=== PATIENT | female | born 1970 | race Caucasian/White ===

== ENCOUNTER 2022-06-15 05:49 | Observation (INO) | payer BC ==
--- OUTSIDE RECORDS SUMMARY | 2022-06-15 05:53 | XMS REPORT | Continuity of Care Document ---
:1970 Author Organization [facility] t Address [address] [place] [address] Care Team Providers Name Role Phone Asked, No Pcp Primary Care Physician Unavailable KNOW, DOES_NOT Attending Clinician Unavailable Miracle Estevez Attending Clinician Unavailable Physician, No Primary or Family Admitting Clinician Unavaila ble Payers Payer Name Policy Type Policy Number Effective Date Expiration Date S ource Problems This patient has no known problems. Allergies, Adverse Reactions, Alerts Allergy Allergy Status Severity Reaction(s) Onset Inactive Treating Comm ents Source Name Type Date Date Clinician No Known DA Active U 2020-0 [facility] Clear s 00:00: [place] [address] [facility] No Known DA Active U 2020-0 [facility] Allergie 5-11 Clear s 00:00: [place] [address] [facility] No Known DA Active U 2020-0 [facility] 3[facility]10 [facility] No Known DA Active U 2020-0 [facility] Allergie 3-10 [facility] Morphine Propensi Active Other (See 20180 Makes me Methodi ty to Comments) 6- crazy st adverse 00:00: Hospita reaction 00 l s to drug Family History Family Member Diagnosis Comments Start Date Stop Date Source Natural brother Cancer [facility] Natural father Heart disease [facility] Natural mother Stroke [facility] Social History Social Habit Start Date Stop Date Quantity Comments Source History of Smokes tobacco [facility] tobacco use daily [facility] Alcohol intake 2018-01-10 2018-01-10 Current [facility] 00:00:00 00:00:00 non-drinker of Hospital alcohol (finding) Tobacco use and 2018-01-04 2018-01-04 User of smokeless [facility] exposure 00:00:00 00:00:00 tobacco Hospital Sex Assigned At [birth year] [facility] 00:[facility]:00 Hospital Smoking Status Start Date Stop Date Source Smokes tobacco daily 2018-01-04 00:00:00 [facility] Medications Ordered Filled Start Stop Current Ordering Indication Dosage Frequency Signature Comments Components Source Medication Medication Date Date Medication? Clinician (SIG) Name Name lisinopril 0 Yes 20mg QD Take 20 mg M ethodi (PRINIVIL,Z 6-[address] ESTRIL) 20 13:54: daily. Hospi ta mg tablet 53 l hydroCHLORO 0 Yes 12.5mg QD Take 12.5 Methodi thiazide 6-[address] (HYDRODIURI 13:54: mouth Hospi ta L) 12.5 MG 53 daily. l tablet levothyroxi 0 Yes 100ug QD Take 100 M ethodi ne 6-[address] (SYNTHROID, 13:54: mouth Hospi ta LEVOXYL) 53 daily. l 100 mcg tablet carvedilol 0 Yes 12.5mg Q.5D Take 12.5 Methodi (COREG) 6-[address] 12.5 MG 13:54: mouth 2 Hospita tablet 53 (two) l times a day with meals. gemfibrozil 2017-0 Yes 600mg QD Take 600 M ethodi (LOPID) 600 6-[address] MG tablet 13:54: mouth Hospita 53 daily. l clopidogrel 2018-0 Yes 75mg QD Take 75 mg Methodi (PLAVIX) 75 6-[address] mg tablet 13:54: daily. Hospit a 53 l ranitidine 2017-0 Yes 75mg Q.5D Take 75 mg M ethodi (ZANTAC) 15 6-[address] mg/mL syrup 13:54: (two) Hospi ta 53 times a l day. Procedures Procedure Date / Time Performed Performing Clinician Malissa horton [id number] 2019-12-04 00:00:00 [facility] [id number] 2019-12-04 00:00:00 [facility] [id number] 2019-12-04 00:00:00 [facility] Plan of Care Planned Activity Planned Date Details Comments Source Future Scheduled 2022-05-28 HEPATITIS B VACCINES Met [facility] Test 21:40:46 (1 of 3 - 3-dose series) [code = HEPATITIS B VACCINES (1 of 3 - 3-dose series)] Future Scheduled 2022-05-28 COVID-19 VACCINE (#1) [facility] Test 21:40:46 [code = COVID-19 VACCINE (#1)] Future Scheduled 2022-05-28 Screening for [facility] Test 21:40:46 malignant neoplasm of cervix (procedure) [code = 420728987] Future Scheduled 2022-05-28 BREAST CANCER [facility] Test 21:40:46 SCREENING [code = BREAST CANCER SCREENING] Future Scheduled 2022-05-28 COLONOSCOPY SCREENING [facility] Test 21:40:46 [code = COLONOSCOPY SCREENING] Future Scheduled 2022-05-28 SHINGLES VACCINES (1 Met [facility] Test 21:40:46 of 2) [code = SHINGLES VACCINES (1 of 2)] Future Scheduled 2022-05-28 INFLUENZA VACCINE [facility] Test 21:40:46 [code = INFLUENZA VACCINE] Encounters Start End Encounter Admission Attending Care Care Encounter Source Date/Time Date/Time Type Type Clinicians Facility Department ID 2019-12-02 Inpatient HCAMN MAISHA [id number] [facility] 10:34:00 44 [facility] 2019-10-02 Inpatient HCAMN MAISHA [id number] [facility] 15:53:00 32 [facility] 2020-02-25 2020-02-25 Outpatient TIFFANY, KENYON MANCILLAM [id number] [facility] 13:41:00 13:41:00 DOES_NOT 25 [facility] 2019-12-03 2019-12-03 Outpatient ANISA Estevez LABO [id number] [facility] 23:57:00 23:57:00 Miracle 27 [facility] Results Test Description Test Time Test Comments Results Result Comments Source BASIC METABOLIC PANEL 2019-12-05 07:08:00 Test Item Value Reference Range Interpretation Comme nts SODIUM (test code = NA) 136 mmol/l 134.0-147.0 N POTASSIUM (test code = K) 4.1 mmol/L 3.6-5.2 N CHLORIDE (test code = CL) 104 mmol/l 98.0-107.0 N CARBON DIOXIDE (test code = CO2) 27.4 mmol/l 21.0-33.0 N ANION GAP (test code = GAP) 8.7 0-20 N GLUCOSE (test code = GLU) 92 mg/dl 70.0-110.0 N BLOOD UREA NITROGEN (test code = BUN) 17 mg/dl 7.0-18.0 N CREATININE (test code = CREAT) 0.89 mg/dL 0.60-1.30 N GFR NON BLACK (test code = GFRNONBLACK) 71 mL/min 95-105 L GFR BLACK (test code = GFRBLACK) 86 mL/min 115-127 L CALCIUM (test code = CA) 8.2 mg/dl 8.0-10.5 N CBC W/AUTO [id number] 06:55:00 Test Item Value Reference Range Interpretation Comments WHITE BLOOD CELL (test code = 9.4 K/mm3 4.5-11.0 N WBC) RED BLOOD CELL (test code = 4.37 M/mm3 3.80-5.20 N RBC) HEMOGLOBIN (test code = HGB) 13.6 gm/dL 12.0-16.0 N HEMATOCRIT (test code = HCT) 41.3 % 36.0-48.0 N MEAN CELL VOLUME (test code = 94.5 UM3 82.0-99.0 N MCV) MEAN CELL HGB (test code = MCH) 31.1 UUG 25.5-32.5 N MEAN CELL HGB CONCETRATION 32.9 gm/dL 29.0-35.5 N (test code = MCHC) RED CELL DISTRIBUTION WIDTH 13.2 % 11.5-15.0 N (test code = RDW) RED CELL DISTRIBUTION WIDTH SD 45.1 fL 34.8-50.2 N (test code = RDW-SD) PLATELET COUNT (test code = 188 K/mm3 150-400 N PLT) MEAN PLATELET VOLUME (test code 11.7 fl 7.4-10.4 H = MPV) NEUTROPHIL % (test code = NT%) 59.6 % 49.0-76.0 N IMMATURE GRANULOCYTE % (test 0.7 % 0.0-0.4 H code = IG%) LYMPHOCYTE % (test code = LY%) 27.9 % 23.0-38.0 N MONOCYTE % (test code = MO%) 9.9 % 1.0-10.0 N EOSINOPHIL % (test code = EO%) 1.3 % 1.0-5.0 N BASOPHIL % (test code = BA%) 0.6 % 0.0-1.0 N NEUTROPHIL # (test code = NT#) 5.6 K/mm3 2.4-6.3 N IMMATURE GRANULOCYTE # (test 0.07 x10 3/uL 0.00-0.07 N code = IG#) LYMPHOCYTE # (test code = LY#) 2.6 K/mm3 1.2-4.0 N MONOCYTE # (test code = MO#) 0.9 K/mm3 0.0-0.6 H EOSINOPHIL # (test code = EO#) 0.1 K/MM3 0.0-0.7 N BASOPHIL # (test code = BA#) 0.1 K/mm3 0.0-0.2 N [id number]00 Test Item Value Reference Range Interpretation Comments Coronavirus 2019 [facility] (test Negative Negative code = COVNONPUIBED) Coronavirus 2019 [id number] 09:26:00 Test Item Value Reference Range Interpretation Comments Coronavirus 2019 [facility] (test Negative Negative code = COVNONPUIBED) BASIC METABOLIC [id number] 04:46:00 Test Item Value Reference Range Interpretation Comments SODIUM (test code = NA) 142 mmol/l 134.0-147.0 N POTASSIUM (test code = K) 3.9 mmol/L 3.6-5.2 N CHLORIDE (test code = CL) 108 mmol/l 98.0-107.0 H CARBON DIOXIDE (test code = CO2) 26.1 mmol/l 21.0-33.0 N ANION GAP (test code = GAP) 11.8 0-20 N GLUCOSE (test code = GLU) 88 mg/dl 70.0-110.0 N BLOOD UREA NITROGEN (test code = 22 mg/dl 7.0-18.0 H BUN) CREATININE (test code = CREAT) 1.04 mg/dL 0.60-1.30 N GFR NON BLACK (test code = 60 mL/min 95-105 L GFRNONBLACK) GFR BLACK (test code = GFRBLACK) 72 mL/min 115-127 L CALCIUM (test code = CA) 8.0 mg/dl 8.0-10.5 N CBC W/AUTO [id number] 04:30:00 Test Item Value Reference Range Interpretation Comments WHITE BLOOD CELL (test code = 8.3 K/mm3 4.5-11.0 N WBC) RED BLOOD CELL (test code = 4.44 M/mm3 3.80-5.20 N RBC) HEMOGLOBIN (test code = HGB) 13.9 gm/dL 12.0-16.0 N HEMATOCRIT (test code = HCT) 41.9 % 36.0-48.0 N MEAN CELL VOLUME (test code = 94.4 UM3 82.0-99.0 N MCV) MEAN CELL HGB (test code = MCH) 31.3 UUG 25.5-32.5 N MEAN CELL HGB CONCETRATION 33.2 gm/dL 29.0-35.5 N (test code = MCHC) RED CELL DISTRIBUTION WIDTH 12.9 % 11.5-15.0 N (test code = RDW) RED CELL DISTRIBUTION WIDTH SD 44.5 fL 34.8-50.2 N (test code = RDW-SD) PLATELET COUNT (test code = 199 K/mm3 150-400 N PLT) MEAN PLATELET VOLUME (test code 12.0 fl 7.4-10.4 H = MPV) NEUTROPHIL % (test code = NT%) 50.3 % 49.0-76.0 N IMMATURE GRANULOCYTE % (test 0.5 % 0.0-0.4 H code = IG%) LYMPHOCYTE % (test code = LY%) 36.2 % 23.0-38.0 N MONOCYTE % (test code = MO%) 10.2 % 1.0-10.0 H EOSINOPHIL % (test code = EO%) 1.8 % 1.0-5.0 N BASOPHIL % (test code = BA%) 1.0 % 0.0-1.0 N NEUTROPHIL # (test code = NT#) 4.2 K/mm3 2.4-6.3 N IMMATURE GRANULOCYTE # (test 0.04 x10 3/uL 0.00-0.07 N code = IG#) LYMPHOCYTE # (test code = LY#) 3.0 K/mm3 1.2-4.0 N MONOCYTE # (test code = MO#) 0.8 K/mm3 0.0-0.6 H EOSINOPHIL # (test code = EO#) 0.2 K/MM3 0.0-0.7 N BASOPHIL # (test code = BA#) 0.1 K/mm3 0.0-0.2 N [id number] 12:19:00 Test Item Value Reference Range Interpretation Comments GLUBED (test code = GLUBED) 90 mg/dL 70-110 N [id number] 18:26:00 Test Item Value Reference Range Interpretation Comments TROPONIN-I (test 0.66 NG/ML 0.00-0.06 HH REFERENCE R ERMIAS TROPONIN code = TROPI) I HEALTHY WILMAN VIDUALS: <0.06 ng/mL R/O ISCHEMIA: 0.07 - 0.60 ng/mL CUT-OFF R ERMIAS FOR AMI: 0.60 - 1.5 ng/mL [id number] 18:05:00 Test Item Value Reference Range Interpretation Comments GLUBED (test code = GLUBED) 117 mg/dL 70-110 H [id number] 16:17:00 Test Item Value Reference Range Interpretation Comments TROPONIN-I (test 0.67 NG/ML 0.00-0.06 HH REFERENCE R ERMIAS TROPONIN code = TROPI) I HEALTHY WILMAN VIDUALS: <0.06 ng/mL R/O ISCHEMIA: 0.07 - 0.60 ng/mL CUT-OFF R ERMIAS FOR AMI: 0.60 - 1.5 ng/mL - XR CHEST 1 [id number] 12:45:00 FAX: Urszula Whitman MD [phone] [place]: St: REG Name: OLGA [facility] : 1970 Age/S: 49/F [employer] Unit #: [id number] Loc: [address] Phys: [place] [id number] Acct: [id number] Dis Date: Status: REG ER PHONE #: [phone] Exam Date: 12/02/2019 1239 FAX#: [phone] Reason: SOB EXAMS: CPT CODE: [id number] XR CHEST 1 V 43894 STUDY: Chest radiograph HISTORY: Shortness of breath. COMPARISON: None. TECHNIQUE: Frontal view of the chest. SITE: R16 FINDINGS: There is a left-sided chest wall triple lead AICD. The cardiac silhouette is mildly enlarged. Theretrocardiac region is limited in visualization. There otherwise, there is no definitive focal consolidation, pleural effusion, or pneumothorax. No acute osseous abnormalities are identified. IMPRESSION: No definitive radiographic evidence for acute pulmonary abnormality, limited in assessment at the retrocardiac region. Cardiomegaly. at 7947 Reported and signed by: Lenny Toth M.D. CC: Urszula Whitman MD Technologist: Amanda Daugherty RT(R) Trnscrd Date/Time/By: 12/02/2019 (0923) : By: [email or web address] PAGE 1 Signed Report FAX: Urszula Whitman MD [phone] [place]: St: REG Name: OLGA CRAWFORD [facility] : 1970 Age/S: 49/F [address] [facility] Unit #: [id number] Loc: E.ERS2 [place], [place]: [place] [id number] Acct: [id number] Dis Date: Status: REG ER PHONE #: [phone] Exam Date: 12/02/2019 1239 FAX #: [phone] Reason: SOB EXAMS: CPT CODE: [id number] XR CHEST 1 V 87433 (Continued) Orig Print D/T: S: 12/02/2019 (1248) PAGE 2 Signed ReportURINALYSIS [id number] 12:32:00 Test Item Value Reference Range Interpretation Comments UA COLOR (test code = YELLOW COLU) UA APPEARANCE (test code CLEAR = APPU) UA GLUCOSE DIPSTICK (test NORMAL mg/dl NORMAL code = DGLUU) UA BILIRUBIN DIPSTICK NEGATIVE mg/dL NEGATIVE (test code = BILU) UA KETONE DIPSTICK (test NEGATIVE mg/dl NEGATIVE code = KETU) UA SPECIFIC GRAVITY (test 1.025 1.000-1.030 code = SGU) UA BLOOD DIPSTICK (test 10 Cliff/micL Cliff/micL NEGATIVE A code = ANGELA) UA PH DIPSTICK (test code 5.0 5.0-9.0 = IZZY) UA PROTEIN DIPSTICK (test NEGATIVE mg/dl NEGATIVE code = PROU) UA UROBILINIOGEN DIPSTICK NORMAL mg/dl NORMAL (test code = URO) UA NITRITE DIPSTICK (test NEGATIVE NEGATIVE code = CAITLYN) UA LEUKOCYTE ESTERASE NEGATIVE Louise/micL NEGATIVE DIPSTICK (test code = LEUU) UA WBC (test code = WBCU) 0-3 WBC/HPF NONE UA RBC (test code = RBCU) 0-2 RBC/HPF 0-3 UA EPITHELIAL CELLS (test 2-5 EPI/HPF 0-3 A code = EPIU) UA BACTERIA (test code = TRACE NONE BACU) Specimen comments: Clean CatchHCG SERUM [id number] 12:26:00 Test Item Value Reference Range Interpretation Comments HCG SERUM QUAL (test code = HCGQL) NEGATIVE NEGATIVE DRUGS OF ABUSE SCREEN [id number] 12:12:00 Test Item Value Reference Range Interpretation Comments URN COCAINE (test code NEGATIVE NEGATIVE Cocai ne cut-off = COCAURN) concentration: 300 ng/mL URN CANNABINOIDS (test NEGATIVE NEGATIVE Canna binoids cut-off code = CANNABURN) concentrat ion: 50 ng/mL URN AMPHETAMINE (test NEGATIVE NEGATIVE Amphet amine cut-off code = AMPHETURN) concentrat ion: 1000 ng/mL URN BARBITURATE (test NEGATIVE NEGATIVE Barbit urate cut-off code = BARBITURN) concentrat ion: 200 ng/mL URN BENZODIAZEPINE NEGATIVE NEGATIVE Benzodiaz epine cut-off (test code = BENZOURN) naseem ntration: 200 ng/mL URN OPIATES (test code NEGATIVE NEGATIVE Opiat es cut-off = OPIATURN) concentration: 200 ng/mL URN PHENCYCLIDINE (PCP) NEGATIVE NEGATIVE Phen cyclidine(PCP) (test code = PHENCURN) cut-o ff concentration: 25 ng/ml URN METHADONE (test NEGATIVE NEGATIVE Methadon e cut-off code = METHAURN) concentrati on: 300 ng/mL URINALYSIS [id number] 12:12:00 Test Item Value Reference Range Interpretation Comments UA COLOR (test code = YELLOW COLU) UA APPEARANCE (test code CLEAR = APPU) UA GLUCOSE DIPSTICK (test NORMAL mg/dl NORMAL code = DGLUU) UA BILIRUBIN DIPSTICK NEGATIVE mg/dL NEGATIVE (test code = BILU) UA KETONE DIPSTICK (test NEGATIVE mg/dl NEGATIVE code = KETU) UA SPECIFIC GRAVITY (test 1.025 1.000-1.030 code = SGU) UA BLOOD DIPSTICK (test 10 Cliff/micL Cliff/micL NEGATIVE A code = ANGELA) UA PH DIPSTICK (test code 5.0 5.0-9.0 = IZZY) UA PROTEIN DIPSTICK (test NEGATIVE mg/dl NEGATIVE code = PROU) UA UROBILINIOGEN DIPSTICK NORMAL mg/dl NORMAL (test code = URO) UA NITRITE DIPSTICK (test NEGATIVE NEGATIVE code = CAITLYN) UA LEUKOCYTE ESTERASE NEGATIVE Louise/micL NEGATIVE DIPSTICK (test code = LEUU) UA WBC (test code = WBCU) WBC/HPF NONE UA RBC (test code = RBCU) RBC/HPF 0-3 UA EPITHELIAL CELLS (test EPI/HPF 0-3 code = EPIU) UA BACTERIA (test code = NONE BACU) Specimen comments: Clean CatchBASIC METABOLIC [id number] 11:51:00 Test Item Value Reference Range Interpretation Comments SODIUM (test code = NA) 139 mmol/l 134.0-147.0 N POTASSIUM (test code = K) 3.8 mmol/L 3.6-5.2 N CHLORIDE (test code = CL) 105 mmol/l 98.0-107.0 N CARBON DIOXIDE (test code = CO2) 25.2 mmol/l 21.0-33.0 N ANION GAP (test code = GAP) 12.6 0-20 N GLUCOSE (test code = GLU) 110 mg/dl 70.0-110.0 N BLOOD UREA NITROGEN (test code = 22 mg/dl 7.0-18.0 H BUN) CREATININE (test code = CREAT) 1.15 mg/dL 0.60-1.30 N GFR NON BLACK (test code = 53 mL/min 95-105 L GFRNONBLACK) GFR BLACK (test code = GFRBLACK) 64 mL/min 115-127 L CALCIUM (test code = CA) 8.5 mg/dl 8.0-10.5 N Specimen comments: .HEPATIC FUNCTION PANEL [id number] 11:51:00 Test Item Value Reference Range Interpretation Comments TOTAL PROTEIN (test code = PROT) 7.2 GM/DL 6.0-8.1 N ALBUMIN (test code = ALB) 3.5 gm/dL 3.2-4.7 N BILIRUBIN TOTAL (test code = BILT) 0.4 mg/dl 0.0-1.0 N BILIRUBIN DIRECT (test code = 0.1 mg/dl 0.0-0.3 N BILD) SGOT/AST (test code = AST) 24 Units/L 15.0-37.0 N SGPT/ALT (test code = ALT) 33 Units/L 12.0-78.0 N ALKALINE PHOSPHATASE TOTAL (test 76 Units/L 50.0-136.0 N code = ALKP) Specimen comments: .[id number] 11:51:00 Test Item Value Reference Range Interpretation Comments LIPASE (test code = LIP) 123 Units/L 65.0-230.0 N Specimen comments: .B-TYPE NATRIURETIC [id number] 11:51:00 Test Item Value Reference Range Interpretation Comments B-TYPE NATRIURETIC PEPTIDE (test 45.9 PG/ML 5-100 N code = BNP) Specimen comments: .[id number] 11:51:00 Test Item Value Reference Range Interpretation Comments CKMB (test code = 5.5 NG/ML 0.5-5.0 H DISREGARD CKMB INDEX CKMBT) CALCULATION WHE NEVER THE CKMBT ISREPORTE D <0.5 Specimen comments: .[id number] 11:51:00 Test Item Value Reference Range Interpretation Comments TROPONIN-I (test 0.24 NG/ML 0.00-0.06 H REFERENCE R ERMIAS TROPONIN code = TROPI) I HEALTHY WILMAN VIDUALS: <0.06 ng/mL R/O ISCHEMIA: 0.07 - 0.60 ng/mL CUT-OFF R ERMIAS FOR AMI: 0.60 - 1.5 ng/mL Specimen comments: .BASIC METABOLIC [id number] 11:48:00 Test Item Value Reference Range Interpretation Comments SODIUM (test code = NA) 139 mmol/l 134.0-147.0 N POTASSIUM (test code = K) 3.8 mmol/L 3.6-5.2 N CHLORIDE (test code = CL) 105 mmol/l 98.0-107.0 N CARBON DIOXIDE (test code = CO2) 25.2 mmol/l 21.0-33.0 N ANION GAP (test code = GAP) 12.6 0-20 N GLUCOSE (test code = GLU) 110 mg/dl 70.0-110.0 N BLOOD UREA NITROGEN (test code = 22 mg/dl 7.0-18.0 H BUN) CREATININE (test code = CREAT) 1.15 mg/dL 0.60-1.30 N GFR NON BLACK (test code = 53 mL/min 95-105 L GFRNONBLACK) GFR BLACK (test code = GFRBLACK) 64 mL/min 115-127 L CALCIUM (test code = CA) 8.5 mg/dl 8.0-10.5 N Specimen comments: .HEPATIC FUNCTION PANEL [id number] 11:48:00 Test Item Value Reference Range Interpretation Comments TOTAL PROTEIN (test code = PROT) 7.2 GM/DL 6.0-8.1 N ALBUMIN (test code = ALB) 3.5 gm/dL 3.2-4.7 N BILIRUBIN TOTAL (test code = BILT) 0.4 mg/dl 0.0-1.0 N BILIRUBIN DIRECT (test code = 0.1 mg/dl 0.0-0.3 N BILD) SGOT/AST (test code = AST) 24 Units/L 15.0-37.0 N SGPT/ALT (test code = ALT) 33 Units/L 12.0-78.0 N ALKALINE PHOSPHATASE TOTAL (test 76 Units/L 50.0-136.0 N code = ALKP) Specimen comments: .[id number] 11:48:00 Test Item Value Reference Range Interpretation Comments LIPASE (test code = LIP) 123 Units/L 65.0-230.0 N Specimen comments: .B-TYPE NATRIURETIC [id number] 11:48:00 Test Item Value Reference Range Interpretation Comments B-TYPE NATRIURETIC PEPTIDE (test code PG/ML 5-100 = BNP) Specimen comments: .[id number] 11:48:00 Test Item Value Reference Range Interpretation Comments CKMB (test code = 5.5 NG/ML 0.5-5.0 H DISREGARD CKMB INDEX CKMBT) CALCULATION WHE NEVER THE CKMBT ISREPORTE D <0.5 Specimen comments: .[id number] 11:48:00 Test Item Value Reference Range Interpretation Comments TROPONIN-I (test 0.24 NG/ML 0.00-0.06 H REFERENCE R ERMIAS TROPONIN code = TROPI) I HEALTHY WILMAN VIDUALS: <0.06 ng/mL R/O ISCHEMIA: 0.07 - 0.60 ng/mL CUT-OFF R ERMIAS FOR AMI: 0.60 - 1.5 ng/mL Specimen comments: .PROTHROMBIN [id number] 11:43:00 Test Item Value Reference Range Interpretation Comments PROTHROMBIN TIME 11.5 SECONDS 9.9-12.8 N PATIENT (test code = PTP) INTERNATIONAL NORMAL 1.0 0.89-1.14 N THE INR IS TO BE USED RATIO (test code = ONLY FOR MONITORING INR) ORAL ANTICOAGULANTTH ERAPY. THE FOLLOWING A RE SUGGESTED RANGE S [facility] LE[facility] CHEST PHYSICIANS:[facility]ILMAN CATION INR VALUEPROPHY LAXIS OF VENOUS THROM BOSIS (ORTHOPEDIC INGA BEN) 2.0 - 3.0PROPHY LAXIS OF VENOUS THROM BOSIS (OTHER THAN HIG H-RISK SURGERY) 2.0 - 3.0TREATMENT OF DEEP VEIN THROMBOSIS OR PULMONARY EMBOL ISM 2.0 - 3.0PREVENTION OF SYSTEMIC EMBOLI SM TISSUE HEART VA LVES 2.0 - 3.0 ACUTE MYOCARDIAL INFA RCTION (TO PREVENT SYS TEMIC EMBOLISM) 2.0 - 3.0 ACUTE MYOCARDIA L INFARCTION (TO PREVENT RECURRENT INFAR CT) 2.5 - 3.0 VALVULAR HEART DISEASE 2.0 - 3 .0 ATRIAL FIBRILAT ION 2.0 - 3.0BILEAFLET MECHANICAL VALV E IN AORTIC POSITION 2.0 - 3.0MECHANICAL PROSTHETIC VALV ES (HIGH RISK) 2.5 - 3.5PRESENCE OF LUPUS ANTICOAGULANT O R ANTIPHOSPHOLIPI D ANTIBODIES 2.5 - 3.5 Specimen comments: .Is patient on anticoagulants? NTHROMBOPLASTIN TIME PARTIAL 2019-12-02 11:43:00 Test Item Value Reference Range Interpretation Comments THROMBOPLASTIN TIME 33.90 SECONDS 25.86-36.07 N [facility] PARTIAL (test code = Therape uti Range - PTT) APTT of 55.8-85 .4 secondscorrelat es with plasma heparin concentration o f 0.2-0.4 u/mL Ne w range effective - Specimen comments: .Is patient on anticoagulants? [id number] 11:43:00 Test Item Value Reference Range Interpretation Comments D-DIMER/FSP (test <200 ng/mL 200.0-230.0 L 133 *Per code = DDIMER) mixer tender recommendation, the CUT OFFfor the Diagnosis of PE or DVT with a 100% SEN SITIVITY &100% PREDICTIV E VALUE is suggested to be 230 ng/mL D-DIMERUNIT(DDU ). D-DIMER RESULTS MAY BE AFFECTED BY:1. HEMOGLOBI N > 100 mg/dL2. BILIRUB IN > 10 mg/dL3. TRIGLYC ERIDES > 1500 mg/dL4. Th e presence of RHEUMATIOID FACTOR may produce an over estimation of the test res ult. Specimen comments: .Is patient on anticoagulants? NCBC W/AUTO [id number] 11:32:00 Test Item Value Reference Range Interpretation Comments WHITE BLOOD CELL (test code = 9.6 K/mm3 4.5-11.0 N WBC) RED BLOOD CELL (test code = 5.01 M/mm3 3.80-5.20 N RBC) HEMOGLOBIN (test code = HGB) 15.5 gm/dL 12.0-16.0 N HEMATOCRIT (test code = HCT) 46.2 % 36.0-48.0 N MEAN CELL VOLUME (test code = 92.2 UM3 82.0-99.0 N MCV) MEAN CELL HGB (test code = MCH) 30.9 UUG 25.5-32.5 N MEAN CELL HGB CONCETRATION 33.5 gm/dL 29.0-35.5 N (test code = MCHC) RED CELL DISTRIBUTION WIDTH 13.1 % 11.5-15.0 N (test code = RDW) RED CELL DISTRIBUTION WIDTH SD 44.0 fL 34.8-50.2 N (test code = RDW-SD) PLATELET COUNT (test code = 236 K/mm3 150-400 N PLT) MEAN PLATELET VOLUME (test code 12.0 fl 7.4-10.4 H = MPV) NEUTROPHIL % (test code = NT%) 57.2 % 49.0-76.0 N IMMATURE GRANULOCYTE % (test 0.6 % 0.0-0.4 H code = IG%) LYMPHOCYTE % (test code = LY%) 29.8 % 23.0-38.0 N MONOCYTE % (test code = MO%) 9.5 % 1.0-10.0 N EOSINOPHIL % (test code = EO%) 1.9 % 1.0-5.0 N BASOPHIL % (test code = BA%) 1.0 % 0.0-1.0 N NEUTROPHIL # (test code = NT#) 5.5 K/mm3 2.4-6.3 N IMMATURE GRANULOCYTE # (test 0.06 x10 3/uL 0.00-0.07 N code = IG#) LYMPHOCYTE # (test code = LY#) 2.9 K/mm3 1.2-4.0 N MONOCYTE # (test code = MO#) 0.9 K/mm3 0.0-0.6 H EOSINOPHIL # (test code = EO#) 0.2 K/MM3 0.0-0.7 N BASOPHIL # (test code = BA#) 0.1 K/mm3 0.0-0.2 N [id number] 16:54:00 Test Item Value Reference Range Interpretation Comments TROPONIN-I (test <0.02 NG/ML 0.00-0.06 N REFERENCE R ERMIAS code = TROPI) TROPONIN I HEA LTHY INDIVIDUALS: <0 .06 ng/mL R/O ISCHE JESUS: 0.07 - 0.60 ng/ mL CUT-OFF RANGE F OR AMI: 0.60 - 1.5 ng/m L BASIC METABOLIC [id number] 16:54:00 Test Item Value Reference Range Interpretation Comments SODIUM (test code = NA) 139 mmol/l 134.0-147.0 N POTASSIUM (test code = K) 4.6 mmol/L 3.6-5.2 N CHLORIDE (test code = CL) 105 mmol/l 98.0-107.0 N CARBON DIOXIDE (test code = CO2) 23.6 mmol/l 21.0-33.0 N ANION GAP (test code = GAP) 15.0 0-20 N GLUCOSE (test code = GLU) 113 mg/dl 70.0-110.0 H BLOOD UREA NITROGEN (test code = 18 mg/dl 7.0-18.0 N BUN) CREATININE (test code = CREAT) 1.05 mg/dL 0.60-1.30 N GFR NON BLACK (test code = 59 mL/min 95-105 L GFRNONBLACK) GFR BLACK (test code = GFRBLACK) 71 mL/min 115-127 L CALCIUM (test code = CA) 9.1 mg/dl 8.0-10.5 N CREATINE KINASE (CK)[id number] 16:53:00 Test Item Value Reference Range Interpretation Comments CREATINE KINASE (CK) (test code = 72 Units/L 26-192 N CK) CBC W/AUTO [id number] 16:45:00 Test Item Value Reference Range Interpretation Comments WHITE BLOOD CELL (test code = 10.4 K/mm3 4.5-11.0 N WBC) RED BLOOD CELL (test code = 4.89 M/mm3 3.80-5.20 N RBC) HEMOGLOBIN (test code = HGB) 15.2 gm/dL 12.0-16.0 N HEMATOCRIT (test code = HCT) 45.9 % 36.0-48.0 N MEAN CELL VOLUME (test code = 93.9 UM3 82.0-99.0 N MCV) MEAN CELL HGB (test code = MCH) 31.1 UUG 25.5-32.5 N MEAN CELL HGB CONCETRATION 33.1 gm/dL 29.0-35.5 N (test code = MCHC) RED CELL DISTRIBUTION WIDTH 13.9 % 11.5-15.0 N (test code = RDW) RED CELL DISTRIBUTION WIDTH SD 47.6 fL 34.8-50.2 N (test code = RDW-SD) PLATELET COUNT (test code = 195 K/mm3 150-400 N PLT) MEAN PLATELET VOLUME (test code 11.7 fl 7.4-10.4 H = MPV) NEUTROPHIL % (test code = NT%) 54.9 % 49.0-76.0 N IMMATURE GRANULOCYTE % (test 1.4 % 0.0-0.4 H code = IG%) LYMPHOCYTE % (test code = LY%) 32.0 % 23.0-38.0 N MONOCYTE % (test code = MO%) 8.8 % 1.0-10.0 N EOSINOPHIL % (test code = EO%) 2.1 % 1.0-5.0 N BASOPHIL % (test code = BA%) 0.8 % 0.0-1.0 N NEUTROPHIL # (test code = NT#) 5.7 K/mm3 2.4-6.3 N IMMATURE GRANULOCYTE # (test 0.15 x10 3/uL 0.00-0.07 H code = IG#) LYMPHOCYTE # (test code = LY#) 3.3 K/mm3 1.2-4.0 N MONOCYTE # (test code = MO#) 0.9 K/mm3 0.0-0.6 H EOSINOPHIL # (test code = EO#) 0.2 K/MM3 0.0-0.7 N BASOPHIL # (test code = BA#) 0.1 K/mm3 0.0-0.2 N BASIC METABOLIC [id number] 16:43:00 Test Item Value Reference Range Interpretation Comments SODIUM (test code = NA) 139 mmol/l 134.0-147.0 N POTASSIUM (test code = K) 4.6 mmol/L 3.6-5.2 N CHLORIDE (test code = CL) 105 mmol/l 98.0-107.0 N CARBON DIOXIDE (test code = CO2) 23.6 mmol/l 21.0-33.0 N ANION GAP (test code = GAP) 15.0 0-20 N GLUCOSE (test code = GLU) mg/dl 70.0-110.0 BLOOD UREA NITROGEN (test code = mg/dl 7.0-18.0 BUN) CREATININE (test code = CREAT) mg/dL 0.60-1.30 GFR NON BLACK (test code = mL/min 95-105 GFRNONBLACK) GFR BLACK (test code = GFRBLACK) mL/min 115-127 CALCIUM (test code = CA) mg/dl 8.0-10.5 CT HEART WO; CALCIUM SCORINGCLINICAL INDICATION: R94.39 Abnormal result of other cardiovascular function studyMODALITY: [facility] [place] [address] (Iterative dose reduction technique is used).TECHNIQUE: High-resolution gated CT imaging of the chest is performed, attention to coronary arteries. Images are analyzed for the presence and extent of coronary artery calcification, using coronary calcification software on the [employer]. CT coronary artery images were not obtained.Computed Tomography Dose Index: 14.5 mGy.FINDINGS:Left Main: 0Left Anterior Descending: Coronary artery stent in the proximal LAD the lumen of the region of the stent is poorly delineated. There is no additional calcification identified in the LAD. The distal LAD is poorly seen. The region of the stent is not measured.Left Circumflex: Coronary artery stent in the proximal left circumflex coronary artery. Multiple small calcifications of the left circumflex coronary artery proximally measuring 36 proximal to the stent. The region of the stent is not measured.Right Coronary: There is also artifact along the apices of the lungs and upper mediastinum due to the pacemaker along the left chest wall. Tiny punctate calcification at along the posterior right coronary artery along the base of the heart.Miscellaneous findings: Three pacemaker leads extending into the SVC as well as a a lead in the great vein. There is artifact overlying the region of the right coronary artery, portions of the left circumflex artery and right aspect of the heart.IMPRESSION:Total Agatston Calcium Score: 46.0Calcium score 0: No identifiable plaque. Very low cardiovascular risk Less than 5% chance of CAD, negative.Calcium score 1-10: Minimal plaque burden. Significant coronary artery disease very unlikely.Calcium score 11-100: Mild plaque burden. Likely mild or minimal coronary artery stenosis.Calcium score 101-400: Moderate plaque burden. Moderate non-obstructive coronary artery disease highly likely.Calcium score over 400: Extensive plaque burden. High likelihood of at least one significant coronary stenosis 50% diameter.PQRS 436: [id number] (For official use only.)
[2022-06-15] MEDS ORDERED: ASPIRIN 81 MG CHEWABLE TABLET ONE (05:59)
[2022-06-15] MEDS ORDERED: FAMOTIDINE 20 MG/2 ML VIAL IV ONE (06:13)
[2022-06-15] MEDS ORDERED: ENOXAPARIN 80 MG/0.8 ML SQ ONE (06:13)
[2022-06-15 06:25] LABS: Absolute Lymphocytes (CBC) 3.7 K/uL (0.7-4.9); Hematocrit 47.4 % (36.0-45.0); Lymphocytes % 34.4 % (15.3-44.8); MCV 90.9 fL (80-100); RBC Red Blood Cell Count 5.22 M/uL (3.86-4.86)
[2022-06-15 06:36] LABS: SARS-CoV-2 Antigen Rapid Res Negative (Negative)
--- NOTE | 2022-06-15 06:37 | ER ---
Nurse's Notes [facility] Name: Aylin Crawford Age: 52 yrs Sex: Female : 1970 Arrival Date: 06/15/2022 Time: 05:51 Bed 19 Private MD: Diagnosis: Chest pain, unspecified;Presence of cardiac pacemaker-DEFIBRILLATOR;Essential (primary) hypertension;Tobacco abuse counseling;Tobacco use Presentation: 06/15 06:04 Chief complaint: Patient states: "I woke up from a sleep with really bad chest vc1 pain starting under my breast and going to my back. I've had a heart attack before and it felt similar.". Coronavirus screen: Vaccine status: Patient reports being unvaccinated. Client denies travel out of the [place] in the last 14 days. At this time, the client does not indicate any symptoms associated with coronavirus-19. Ebola Screen: No symptoms or risks identified at this time. Initial Sepsis Screen: Does the patient meet any 2 criteria? No. Patient's initial sepsis screen is negative. Does the patient have a suspected source of infection? No. Patient's initial sepsis screen is negative. Risk Assessment: Do you want to hurt yourself or someone else? Patient reports no desire to harm self or others. Onset of symptoms was June 15, 2022. 06:04 Method Of Arrival: Ambulatory vc1 06:04 Acuity: BELLE 3 vc1 06:11 Care prior to arrival: Medication(s) given: ASA, 81 mg, x 1. vc1 Triage Assessment: 06:07 General: Appears in no apparent distress. uncomfortable, Behavior is cooperative. Pain: vc1 Complains of pain in chest Pain radiates to back Pain currently is 3 out of 10 on a pain scale. at worst was 8 out of 10 on a pain scale. Quality of pain is described as sharp. EENT: No deficits noted. Neuro: Level of Consciousness is awake, alert, obeys commands, Oriented to person, place, time, situation, Appropriate for age. Cardiovascular: Capillary refill < 3 seconds Patient's skin is warm and dry. Respiratory: Airway is patent Respiratory effort is even, unlabored, Respiratory pattern is regular, symmetrical. GI: No deficits noted. : No deficits noted. Derm: No deficits noted. Musculoskeletal: No deficits noted. Historical: - Allergies: 06:08 No Known Allergies; vc1 - Home Meds: 06:08 carvedilol 12.5 mg oral tab 1 tab every 12 hours [Active]; Plavix 75 mg Oral tab 1 tab vc1 once daily [Active]; levothyroxine 50 mcg tab 1 tab once daily [Active]; rosuvastatin 40 mg oral cpSP 1 cap once daily [Active]; - PMHx: 06:08 Myocardial infarction; Hypothyroidism; Hypercholesterolemia; vc1 - PSHx: 06:08 pacer/defibrillator; vc1 - Immunization history:: Client reports having NOT received the Covid vaccine. Flu vaccine is not up to date. - Social history:: Smoking status: Patient reports the use of cigarette tobacco products, smokes one-half pack cigarettes per day. - Family history:: not pertinent. Screenin:06 Abuse screen: Denies threats or abuse. Nutritional screening: No deficits noted. vc1 Tuberculosis screening: No symptoms or risk factors identified. Fall Risk None identified. Assessment: 06:10 Pain: Pain began suddenly, 30 min ago. vc1 06:50 Reassessment: Patient appears in no apparent distress at this time. Patient is alert, aa9 oriented x 3, equal unlabored respirations, skin warm/dry/pink. General: Appears comfortable, Behavior is calm, cooperative, appropriate for age. Neuro: Level of Consciousness is awake, alert, obeys commands, Oriented to person, place, time, situation. Respiratory: Airway is patent Respiratory effort is even, unlabored. 07:00 Reassessment: RECD REPORT FROM NICOLE ESPINO. 52YO WF P/W CHEST PAIN, NOW RESOLVED. REPEAT bp TROP PENDING AT 0800. 08:00 Reassessment: REPEAT TROP DRAWN AND SENT. bp 10:00 Reassessment: ADMIT IN PROCESS. bp 11:15 Reassessment: PT LEAVING AMA. HOSPITALIST NOTIFIED. PT URGED TO REMAIN, BUT DECLINED. bp PT COUNSELED TO RETURN IF S/S RETURN. Vital Signs: 06:04 BP 159 / 91; Pulse 81; Resp 14; Pulse Ox 98% on R/A; Weight 70.31 kg; Height 5 ft. 2 vc1 in. (157.48 cm); Pain 3/10; 06:08 Temp 97.9; vc1 06:30 BP 112 / 76; Pulse 67; Resp 17 S; Pulse Ox 95% on R/A; aa9 06:50 BP 106 / 69; Pulse 73; Resp 18 S; Pulse Ox 98% on R/A; aa9 09:00 BP 109 / 63; Pulse 65; Resp 16; Pulse Ox 99% ; bp 11:00 BP 126 / 69; Pulse 67; Resp 12; Pulse Ox 98% ; bp 06:04 Body Mass Index 28.35 (70.31 kg, 157.48 cm) vc1 ED Course: 05:51 Patient arrived in ED. bp1 05:53 Claudio Rose MD is Attending Physician. carol 05:53 Nicole Bazan, RN is Primary Nurse. aa9 06:00 Inserted saline lock: 20 gauge in right antecubital area, using aseptic technique. kd3 Blood collected. 06:01 EKG done, by ED staff, reviewed by Claudio Rose MD. mb4 06:01 Client placed on continuous cardiac and pulse oximetry monitoring. NIBP monitoring mb4 applied. radiation monitor on. Pulse ox on. NIBP on. 06:05 SARS RAPID Sent. aa9 06:05 Lipase Sent. aa9 06:05 Basic Metabolic Panel Sent. aa9 06:05 CBC with Diff Sent. aa9 06:05 LFT's Sent. aa9 06:06 Triage completed. vc1 06:06 Troponin HS Sent. aa9 06:06 PT-INR Sent. aa9 06:06 NT PRO-BNP Sent. aa9 06:06 Magnesium Sent. aa9 06:10 Arm band placed on left wrist. vc1 06:11 Patient maintains SpO2 saturation greater than 95% on room air. vc1 06:24 No provider procedures requiring assistance completed. aa9 06:26 XRAY Chest (1 view) In Process Unspecified. EDMS 06:35 Chas Long MD is Hospitalizing Provider. carol 06:36 Patient has correct armband on for positive identification. Bed in low position. Call aa9 light in reach. Side rails up X2. Adult w/ patient. 07:09 CT Aorta for Dissection In Process Unspecified. EDMS 07:18 Primary Nurse role handed off by Nicole Bazan, RN bp 07:18 Daniel Gannon, SRINIVAS is Primary Nurse. bp 11:17 IV discontinued, intact, bleeding controlled, No redness/swelling at site. Pressure bp dressing applied. Administered Medications: 06:05 Drug: Aspirin Chewable Tablet 162 mg Route: PO; aa9 06:10 Follow up: Response: No adverse reaction aa9 06:18 Drug: Pepcid (famotidine) 20 mg Route: IVP; Site: right antecubital; aa9 06:24 Follow up: Response: No adverse reaction aa9 06:24 Drug: Lovenox (enoxaparin) 1 mg/kg Route: Sub-Q; Site: left lower abdomen; aa9 06:38 Follow up: Response: No adverse reaction aa9 Medication: 06:11 VIS not applicable for this client. vc1 Outcome: 06:36 Decision to Hospitalize by Provider. carol 11:17 AMA AMA form signed bp 11:17 Condition: stable 11:17 Instructed on the need for admit. 11:27 Patient left the ED. bp Signatures: Dispatcher [employer] EDClaudio Longoria MD MD cha Peltier, Brian, RN RN bp Blanca Connelly mb4 Keshia Dill Kyli, RN RN kd3 Sonja Matute RN RN vc1 Nicole Bazan RN RN aa9
--- NOTE | 2022-06-15 06:38 | EDPHYS ---
Physician Documentation [facility] Name: Aylin Crawford Age: 52 yrs Sex: Female : 1970 Arrival Date: 06/15/2022 Time: 05:51 Bed 19 Private MD: ED Physician Claudio Rose HPI: 06/15 06:03 This 52 yrs old Female presents to ER via Unassigned with complaints of Chest carol Pain > 30 y/o. 06:03 The patient or guardian reports chest pain that is located primarily in the substernal carol area. Onset: just prior to arrival. The pain radiates to Associated signs and symptoms: Pertinent positives:. The chest pain is described as a pressure. Duration: The patient or guardian reports a single episode, that is now resolved. Modifying factors: The symptoms are alleviated by nothing. the symptoms are aggravated by nothing. Severity of pain: At its worst the pain was mild in the emergency department the pain is unchanged. The patient has experienced similar episodes in the past, a few times. Historical: - Allergies: 06:08 No Known Allergies; vc1 - Home Meds: 06:08 carvedilol 12.5 mg oral tab 1 tab every 12 hours [Active]; Plavix 75 mg Oral tab 1 tab vc1 once daily [Active]; levothyroxine 50 mcg tab 1 tab once daily [Active]; rosuvastatin 40 mg oral cpSP 1 cap once daily [Active]; - PMHx: 06:08 Myocardial infarction; Hypothyroidism; Hypercholesterolemia; vc1 - PSHx: 06:08 pacer/defibrillator; vc1 - Immunization history:: Client reports having NOT received the Covid vaccine. Flu vaccine is not up to date. - Social history:: Smoking status: Patient reports the use of cigarette tobacco products, smokes one-half pack cigarettes per day. - Family history:: not pertinent. ROS: 06:03 Constitutional: Negative for fever, chills, and weight loss, Eyes: Negative for injury, carol pain, redness, and discharge, ENT: Negative for injury, pain, and discharge, Neck: Negative for injury, pain, and swelling, Respiratory: Negative for shortness of breath, cough, wheezing, and pleuritic chest pain, Abdomen/GI: Negative for abdominal pain, nausea, vomiting, diarrhea, and constipation, Back: Negative for injury and pain, : Negative for injury, bleeding, discharge, and swelling, MS/Extremity: Negative for injury and deformity, Skin: Negative for injury, rash, and discoloration, Neuro: Negative for headache, weakness, numbness, tingling, and seizure, Psych: Negative for depression, anxiety, suicide ideation, homicidal ideation, and hallucinations, Allergy/Immunology: Negative for hives, rash, and allergies, Endocrine: Negative for neck swelling, polydipsia, polyuria, polyphagia, and marked weight changes, Hematologic/Lymphatic: Negative for swollen nodes, abnormal bleeding, and unusual bruising. 06:03 Cardiovascular: Positive for chest pain, of the chest. Exam: 06:05 Constitutional: This is a well developed, well nourished patient who is awake, alert, carol and in no acute distress. Head/Face: Normocephalic, atraumatic. Eyes: Pupils equal round and reactive to light, extra-ocular motions intact. Lids and lashes normal. Conjunctiva and sclera are non-icteric and not injected. Cornea within normal limits. Periorbital areas with no swelling, redness, or edema. ENT: Nares patent. No nasal discharge, no septal abnormalities noted. Tympanic membranes are normal and external auditory canals are clear. Oropharynx with no redness, swelling, or masses, exudates, or evidence of obstruction, uvula midline. Mucous membranes moist. Neck: Trachea midline, no thyromegaly or masses palpated, and no cervical lymphadenopathy. Supple, full range of motion without nuchal rigidity, or vertebral point tenderness. No Meningismus. Chest/axilla: Normal chest wall appearance and motion. Nontender with no deformity. No lesions are appreciated. Cardiovascular: Regular rate and rhythm with a normal S1 and S2. No gallops, murmurs, or rubs. Normal PMI, no JVD. No pulse deficits. Respiratory: Lungs have equal breath sounds bilaterally, clear to auscultation and percussion. No rales, rhonchi or wheezes noted. No increased work of breathing, no retractions or nasal flaring. Abdomen/GI: Soft, non-tender, with normal bowel sounds. No distension or tympany. No guarding or rebound. No evidence of tenderness throughout. Back: No spinal tenderness. No costovertebral tenderness. Full range of motion. Female : Normal external genitalia. Skin: Warm, dry with normal turgor. Normal color with no rashes, no lesions, and no evidence of cellulitis. MS/ Extremity: Pulses equal, no cyanosis. Neurovascular intact. Full, normal range of motion. Neuro: Awake and alert, GCS 15, oriented to person, place, time, and situation. Cranial nerves II-XII grossly intact. Motor strength 5/5 in all extremities. Sensory grossly intact. Cerebellar exam normal. Normal gait. Psych: Awake, alert, with orientation to person, place and time. Behavior, mood, and affect are within normal limits. 06:05 ECG was reviewed by the Attending Physician. Vital Signs: 06:04 BP 159 / 91; Pulse 81; Resp 14; Pulse Ox 98% on R/A; Weight 70.31 kg; Height 5 ft. 2 vc1 in. (157.48 cm); Pain 3/10; 06:08 Temp 97.9; vc1 06:30 BP 112 / 76; Pulse 67; Resp 17 S; Pulse Ox 95% on R/A; aa9 06:50 BP 106 / 69; Pulse 73; Resp 18 S; Pulse Ox 98% on R/A; aa9 09:00 BP 109 / 63; Pulse 65; Resp 16; Pulse Ox 99% ; bp 11:00 BP 126 / 69; Pulse 67; Resp 12; Pulse Ox 98% ; bp 06:04 Body Mass Index 28.35 (70.31 kg, 157.48 cm) vc1 MDM: 05:55 Patient medically screened. carol 06:06 Differential diagnosis: coronary artery disease chest wall pain, Cholelithiasis carol costochondritis, esophagitis, hiatal hernia, pancreatitis, pericarditis, pulmonary embolus, stable angina, thoracic aortic disection, unstable angina. HEART Score: History: Moderately Suspicious (1), ECG: Non specific repolarization disturbance / LBTB / PM (1), Age: > 45 and < 65 years (1), Risk Factors: > or = 3 Risk factors for atherosclerotic disease (2), [Hypercholesterolemia] [Hypertension] [+ Family HX] [Obesity] Troponin: < or = 1 x Normal Limit (0). The patient was given aspirin in the Emergency Department. The patient's deep vein thrombosis risk score was calculated as follows: Total Score: 0. This patient was found to be at low risk for a deep vein thrombosis by using the Well's assessment criteria. The patient's pulmonary embolism risk score was calculated as follows: Total Score: 0-2 points. This patient was found to be at low risk for a pulmonary embolism by using the Well's assessment criteria. NOAH Risk Score: 1 - Three or more CAD risk factors, 1- Known CAD, 1 - ASA use in past 7 days, TOTAL SCORE = 3. Data reviewed: vital signs, nurses notes, lab test result(s), EKG, radiologic studies, CT scan, plain films. Data interpreted: air sampling and monitoring: rate is 69 beats/min, rhythm is regular, Pulse oximetry: on room air is 98 %. Test interpretation: by ED physician or midlevel provider: ECG, plain radiologic studies. Counseling: I had a detailed discussion with the patient and/or guardian regarding: the historical points, exam findings, and any diagnostic results supporting the discharge/admit diagnosis, the presence of at least one elevated blood pressure reading (>120/80) during this emergency department visit, lab results, radiology results, the need for further work-up and treatment in the hospital. 06/15 05:54 Order name: Basic Metabolic Panel; Complete Time: 07:04 [facility] 06/15 05:54 Order name: CBC with Diff; Complete Time: 06:35 [facility] 06/15 05:54 Order name: LFT's; Complete Time: 07:04 [facility] 06/15 05:54 Order name: Magnesium; Complete Time: 07:04 [facility] 06/15 05:54 Order name: NT PRO-BNP; Complete Time: 07:04 [facility] 06/15 05:54 Order name: PT-INR; Complete Time: 07:04 [facility] 06/15 05:54 Order name: Troponin HS; Complete Time: 07:04 [facility] 06/15 05:54 Order name: Lipase; Complete Time: 07:04 [facility] 06/15 05:54 Order name: SARS RAPID; Complete Time: 07:04 [facility] 06/15 07:30 Order name: Troponin High Sensitivity: 11AM [facility] 06/15 08:22 Order name: Hemoglobin A1c [facility] 06/15 08:22 Order name: Lipid Profile [facility] 06/15 08:24 Order name: Magnesium [facility] 06/15 08:24 Order name: NT PRO-BNP [facility] 06/15 05:54 Order name: XRAY Chest (1 view) [facility] 06/15 06:03 Order name: CT Aorta for Dissection [facility] 06/15 08:24 Order name: Phosphorus [facility] 06/15 08:24 Order name: T4 Free [facility] 06/15 08:24 Order name: Thyroid Stimulating Hormone [facility] 06/15 08:24 Order name: Basic Metabolic Panel [facility] 06/15 08:24 Order name: Basic Metabolic Panel [facility] 06/15 08:24 Order name: CBC with Automated Diff [facility] 06/15 08:24 Order name: CBC with Automated Diff [facility] 06/15 08:27 Order name: Echo with Doppler [facility] 06/15 08:27 Order name: Troponin High Sensitivity [facility] 06/15 08:27 Order name: Troponin High Sensitivity [facility] 06/15 08:27 Order name: Troponin High Sensitivity [facility] 06/15 05:54 Order name: EKG; Complete Time: 05:55 [facility] 06/15 05:54 Order name: Cardiac monitoring; Complete Time: 06:01 [facility] 06/15 05:54 Order name: EKG - Nurse/Tech; Complete Time: 06:01 [facility] 06/15 05:54 Order name: IV Saline Lock; Complete Time: 06:01 [facility] 06/15 05:54 Order name: Labs collected and sent; Complete Time: 06:01 [facility] 06/15 05:54 Order name: O2 Per Protocol; Complete Time: 06:05 [facility] 06/15 05:54 Order name: O2 Sat Monitoring; Complete Time: 06:01 [facility] 06/15 08:24 Order name: Heart Healthy EDMS EC:05 Rate is 69 beats/min. Rhythm is regular. QRS [place] is Normal. SD interval is normal. QRS carol interval is normal. QT interval is normal. No Q waves. T waves are Normal. No ST changes noted. Clinical impression: NSR w/ Non-specific ST/T Changes and No evidence of ischemia. Interpreted by me. Reviewed by me. Administered Medications: 06:05 Drug: Aspirin Chewable Tablet 162 mg Route: PO; aa9 06:10 Follow up: Response: No adverse reaction aa9 06:18 Drug: Pepcid (famotidine) 20 mg Route: IVP; Site: right antecubital; aa9 06:24 Follow up: Response: No adverse reaction aa9 06:24 Drug: Lovenox (enoxaparin) 1 mg/kg Route: Sub-Q; Site: left lower abdomen; aa9 06:38 Follow up: Response: No adverse reaction aa9 Disposition Summary: 06/15/22 06:36 Hospitalization Ordered Hospitalization Status: Observation carol Provider: Chas Long cha Location: Telemetry/MedSurg (observation) carol Condition: Fair carol Problem: new carol Symptoms: have improved carol Bed/Room Type: Standard carol Room Assignment: carol Diagnosis - Chest pain, unspecified carol - Presence of cardiac pacemaker - DEFIBRILLATOR carol - Essential (primary) hypertension carol - Tobacco abuse counseling carol - Tobacco use carol Forms: - Medication Reconciliation Form carol - SBAR form carol Signatures: Dispatcher [employer] EDClaudio Longoria MD MD cha Calcote, Vanessa RN RN vc1 Arlen Bazan RN RN aa9
[2022-06-15 06:39] LABS: Protime INR 0.95
[2022-06-15 06:44] LABS: Albumin 3.7 g/dL (3.4-5.0); Bilirubin Direct 0.1 mg/dL (0-0.2); Bilirubin Total 0.4 mg/dL (0.2-1.0); Magnesium 2.2 mg/dL (1.8-2.4); Protein, Total 7.7 g/dL (6.4-8.2); Troponin High Sensitivity 6.3 pg/mL (<58.9)
--- NOTE | 2022-06-15 07:33 | RAD REPORT ---
EXAM DESCRIPTION: CT - Angio Aorta For Dissection - 06/15/2022 7:13 am CLINICAL HISTORY: . Chest and abd pain COMPARISON: 2012 TECHNIQUE: Computed tomography angiography of the chest, abdomen pelvis were obtained. 100 cc Isovue 370 was administered intravenously. Coronal and sagittal reconstruction were performed. MIP 3D reconstruction was performed All CT scans are performed using dose optimization technique as appropriate and may include automated exposure control or mA/KV adjustment according to patient size. FINDINGS: An aortic dissection is not seen. An aortic aneurysm is not displayed. The celiac, SMA and KATLYN are patent . Is mild atherosclerotic disease. A lung consolidation is not present. A pericardial effusion is not seen. A pleural effusion is not no penny. The liver,spleen, pancreas,adrenals and kidneys demonstrate no significant abnormality. There no evidence diverticulitis. No adnexal mass. Equivocal small gallstones. Gallbladder wall does not appear thickened. A 15 millimeter asymmetric density inner right breast. IMPRESSION: Negative for an aortic dissection. A 15 millimeter asymmetric density inner right breast. A nonemergent diagnostic mammogram recommended
[2022-06-15] MEDS ORDERED: HYDROCODONE/APAP 5/325 MG TAB PO PRN (08:19)
[2022-06-15] MEDS ORDERED: ACETAMINOPHEN 325 MG TABLET PO PRN (08:19)
[2022-06-15] MEDS ORDERED: ONDANSETRON 4 MG/2 ML VIAL IV PRN (08:21)
[2022-06-15] MEDS ORDERED: ASPIRIN 325 MG TAB PO SCH (09:00)
[2022-06-15 09:56] LABS: Magnesium 2.3 mg/dL (1.8-2.4); Phosphorus 2.4 mg/dL (2.5-4.9); Thyroid Stimulating Hormone 1.29 uIU/mL (0.360-3.740)
--- NOTE | 2022-06-15 10:21 | RAD REPORT ---
EXAM DESCRIPTION: RAD - Chest Single View - 06/15/2022 6:23 am CLINICAL HISTORY: CHEST PAIN COMPARISON: None. FINDINGS: Single frontal radiograph view of the chest. Cardiomediastinal silhouette: Left chest wall multilead generator. Leads overlie the chest. Lungs: No pneumothorax. Hazy left basilar opacity may be related to overlying soft tissue however ate lectasis or developing pneumonic process could also contribute to this appearance. Bones: No acute osseous abnormality. Upper abdomen: No abnormality identified. IMPRESSION: 1. Hazy left basilar opacity may be related to overlying soft tissue however atelectasis or developing pneumonic process could also contribute to this appearance Electronically signed by: Heron Alonso 06/15/2022 7:25 AM HORTICULTURAL NURSERY ASSISTANT Due to temporary technical issues with the PACS/Fluency reporting system, reports are being signed by the in house radiologists without review as a courtesy to insure prompt reporting. The interpreting radiologist is fully responsible for the content of the report.
[2022-06-15 11:32] VITALS: TEMP 97.9
[2022-06-15 11:34] VITALS: O2SAT 98
[2022-06-15 11:37] VITALS: BP 126/69
--- NOTE | 2022-06-15 12:31 | P.HP ---
Certification for Inpatient Patient admitted to: Observation With expected LOS: <2 Midnights Patient will require the following post-hospital care: None Practitioner: I am a practitioner with admitting privileges, knowledge of patient current condition, hospital course, and medical plan of care. Services: Services provided to patient in accordance with Admission requirements found in Title 42 Section 412.3 of the Code of Federal Regulations Patient History Date of Service: 06/15/22 Reason for admission: Chest pain History of Present Illness: Patient is a 52-year-old female with a past medical history significant for WI, hypothyroidism, HLD, hypertension, cardiomyopathy, pacemaker/defibrillator, nicotine dependence who presents with complaint of chest pain onset this morning. Patient reported that chest pain is located in the left chest wall with radiation to substernal chest area. Patient rated pain as 8/10 and described pain as aching in quality. Patient denies any other signs and symptoms. Symptoms are aggravated or relieved by nothing. Patient reported that chest pain is similar to the chest pain she had when she had a heart attack. Patient decided to present to the hospital for medical evaluation. Allergies No Known Allergies Allergy (Unverified 06/15/22 08:46) - Past Medical/Surgical History -: HTN -: HLD -: Hypothyriodism Past Surgical History: Reviewed- Non-Contributory - Family History Family History: Reviewed- Non-Contributory - Social History Smoking Status: Current every day smoker Counseled patient to stop smoking for: less than 10 minutes Smoking therapy provided: Yes Patient receptive to therapy: Yes Alcohol use: No CD- Drugs: No Caffeine use: Yes Place of Residence: Home Review of Systems General: Unremarkable Eyes: Unremarkable ENT: Unremarkable Respiratory: Unremarkable Cardiovascular: Chest Pain Gastrointestinal: Unremarkable Genitourinary: Unremarkable Musculoskeletal: Unremarkable Integumentary: Unremarkable Neurological: Unremarkable Lymphatics: Unremarkable Physical Examination - Vital Signs Temperature: 97.9 F Blood Pressure: 126/69 Pulse: 67 Respirations: 12 - Physical Exam General: Alert, In no apparent distress, Oriented x3 HEENT: Atraumatic, PERRLA, Mucous membr. moist/pink, EOMI, Sclerae nonicteric Neck: Supple, 2+ carotid pulse no bruit, No LAD, Without JVD or thyroid abnormality Respiratory: Clear to auscultation bilaterally, Normal air movement Cardiovascular: No edema, Regular rate/rhythm, Normal S1 S2 Capillary refill: <2 Seconds Gastrointestinal: Normal bowel sounds, Non-distended, No tenderness Musculoskeletal: No clubbing, No swelling, No contractures, No erythema, No tenderness Integumentary: No rashes, No breakdown, No significant lesion, No tenderness/swelling Neurological: Normal gait, Normal speech, Normal strength at 5/5 x4 extr, Normal tone, Normal affect Lymphatics: No axilla or inguinal lymphadenopathy - Studies Laboratory Data (last 24 hrs) 06/15/22 08:00: Phosphorus 2.4 L, Magnesium 2.3, Triglycerides 153 H, Cholesterol 153, HDL Cholesterol 54, Cholesterol/HDL Ratio 2.83 06/15/22 06:01: PT 10.4, INR 0.95 06/15/22 06:01: WBC 10.80, Hgb 15.9 H, Hct 47.4 H, Plt Count 192 06/15/22 06:01: Sodium 140, Potassium 4.0, BUN 17, Creatinine 1.11, Glucose 130 H, Magnesium 2.2, Total Bilirubin 0.4, AST 14 L, ALT 24, Alkaline Phosphatase 93, Lipase 178 Assessment and Plan - Plan --Chest pain. To rule out ACS. Will trend serial troponins. Cardiology consulted. Echocardiogram pending to assess cardiac structures and functions. Telemetry to monitor for any significant arrhythmia. Will await further recommendation from taxicab dispatcher. --HLD. Continue statin. --History of WI. Continue aspirin, Plavix and statin. --History of cardiomyopathy. Status post pacemaker/defibrillator placement. Patient reported that she was told that her cardiomyopathy has cleared up. Continue supportive care. --Presence of pacemaker\defibrillator. Continue supportive care. --Hypothyroidism. Continue Synthroid. --Hypertension. Stable. Continue home medication. --CKD 2. Baseline functions unknown. We will continue to monitor renal functions. --Nicotine dependence. Patient counseled on tobacco cessation. Refuses nicotine patch. --DVT prophylaxis with Lovenox subQ. Discharge Plan: Home Plan to discharge in: 48 Hours - Advance Directives Does patient have a Living Will: No Does patient have a Durable POA for Healthcare: No - Code Status/Comfort Care Code Status Assessed: Yes Physician Review: Patient Assessed, Agree with Above Assessment and Plan Critical Care: No
--- NOTE | 2022-06-15 13:46 | EKG ---
Test Date: 2022-06-15 Test Time: 05:56:20 Executive Administrative Assistant: MEASUREMENT RESULTS: Intervals: Rate: 69 TN: 116 QRSD: 126 QT: 438 QTc: 469 Webb: P: 47 TN: 116 QRS: 28 T: 9 INTERPRETIVE STATEMENTS: Electronic ventricular pacemaker Compared to ECG 11/07/2013 20:59:40 Atrial-sensed ventricular-paced complex(es) or rhythm no longer present Electronically Signed On 06-15-22 13:45:58 MALT LO[employer] by Valdemar Chiang
[2022-06-15] MEDS ORDERED: ENOXAPARIN 40 MG/0.4 ML SQ SCH (17:00)
== END 2022-06-15 11:15 | disposition left against medical advice (07) ==
LOC: ER 05:49 → ERHOLD 08:18
PROVIDERS: ADMIT Hospitalist; ATTEND Hospitalist
DX: R07.9 Chest pain, unspecified (principal); E03.9 Hypothyroidism, unspecified; I25.2 Old myocardial infarction; I10 Essential (primary) hypertension; E78.5 Hyperlipidemia, unspecified; I42.9 Cardiomyopathy, unspecified; F17.210 Nicotine dependence, cigarettes, uncomplicated; N18.2 Chronic kidney disease, stage 2 (mild); Z20.822 Contact with and (suspected) exposure to COVID-19; Z95.810 Presence of automatic (implantable) cardiac defibrillator
CPT/HCPCS: 93005; 85025; 80048; 36415; 83735 ×2; 84100; 85610; 80061; 80076; 84443; 83036; 84484 ×2; 84439; 83690; 83880; 71275; 74175; 71045; 96372; 96374; 99285; 87811; G0378 ×2